=== PATIENT | female | born 2000 | race African-American/Black ===

== ENCOUNTER 2021-05-12 05:26 | Emergency (ER) | payer MEDICAID ==
[~2021-05-12] VITALS: Ht 180.3 cm; Wt 64.0 kg
[2021-05-12] MEDS ORDERED: BACITRACIN ZINC OINT UDPKT TOP ONE (06:15)
[2021-05-12] MEDS ORDERED: TETANUS, DIPHTHERIA, PERTUSSIS VAC/PF 0.5ML (>10YR OLD) IM ONE (06:15)
[2021-05-12] MEDS ORDERED: IBUPROFEN 600MG TABLET PO ONE (06:15)
[2021-05-12 06:44] LABS: *AMPHETAMINES SCREEN URINE NEGATIVE (NEGATIVE); *BARBITURATES SCREEN URINE NEGATIVE (NEGATIVE); *COCAINE SCREEN URINE NEGATIVE (NEGATIVE); METHADONE URINE SCREEN NEGATIVE (NEGATIVE); OPIATES URINE SCREEN NEGATIVE (NEGATIVE); PHENCYCLIDINE URINE SCREEN NEGATIVE (NEGATIVE)
[2021-05-12 06:47] LABS: *BENZODIAZEPINES SCREEN URINE PRESUMTIVE POSITIVE (NEGATIVE); CANNABINOID URINE SCREEN PRESUMTIVE POSITIVE (NEGATIVE)
[2021-05-12] MEDS ORDERED: IBUP-2029 MT (08:07)
[2021-05-12 08:35] VITALS: BP 114/76
== END 2021-05-12 08:36 | disposition home or self-care (01) ==
LOC: ER 05:26
DX: S80.12XA Contusion of left lower leg, initial encounter (principal); R55 Syncope and collapse; R51.9 Headache, unspecified; F15.10 Other stimulant abuse, uncomplicated; Z90.49 Acquired absence of other specified parts of digestive tract; V49.9XXA Car occupant (driver) (passenger) injured in unspecified traffic accident, initial encounter; Y93.89 Activity, other specified; Y92.89 Other specified places as the place of occurrence of the external cause; Y99.8 Other external cause status
CPT/HCPCS: 73590; 80305; 81025; 90471; 90715; 99285